=== PATIENT | male | born 1970 | race Caucasian/White ===

== ENCOUNTER 2017-03-04 02:17 | Observation (INO) | payer OTHER ==
--- NOTE | 2017-03-04 02:25 | CPEKG ---
Heart Rate: 92 RR Interval: 652 QRSD Interval: 124 QT Interval: 396 QTC Interval: 490 QRS [place]: -33 T Wave [place]: 63 EKG Severity - ABNORMAL ECG - EKG Impression: ACCELERATED JUNCTIONAL RHYTHM EKG Impression: IVCD, CONSIDER ATYPICAL RBBB EKG Impression: ANTERIOR INFARCT, AGE INDETERMINATE Electronically Signed By: Tayler Casillas 04-Mar-2017 07:56:36
[2017-03-04 02:31] LABS: % IMMATURE GRANULYOCYTES 0.4 % (0.0-1.1); ABSOLUTE IMMATURE GRANULOCYTES 0.03 10^3/uL (0.00-0.10); ADD DIFF? NO; ADD MORPH? NO; ADD SCAN? NO; ATYPICAL LYMPHOCYTE FLAG 10 (0-99); FRAGMENT RBC FLAG 0 (0-99); HEMATOCRIT 42.7 % (40.0-51.0); HEMOGLOBIN 15.5 g/dL (13.7-17.5); LEFT SHIFT FLG 0 (0-99); LIPEMIA HEMOLYSIS FLAG 90 (0-99); MEAN CELL HEMOGLOBIN CONCENTR. 36.3 g/dL (32.4-36.7); MEAN CELL VOLUME 88.2 fL (81.5-99.8); MEAN PLATELET VOLUME 10.1 fL (8.7-11.7); PLATELET CLUMPS FLAG 10 (0-99); PLATELET COUNT 309 10^3/uL (150-400); RED BLOOD CELL COUNT 4.84 10^6/uL (4.40-6.38); RED CELL DISTRIBUTION WIDTH 12.2 % (11.5-15.2)
[2017-03-04 02:37] LABS: ANION GAP 17 mEq/L (8-16); CALCIUM 9.9 mg/dL (8.5-10.4); CARBON DIOXIDE 24 mEq/l (22-31); CHLORIDE 100 mEq/L (97-110); CREATININE 1.2 mg/dL (0.7-1.3); GLOMERULAR FILTRATION RATE > 60; GLUCOSE 226 mg/dL (70-100); POTASSIUM 4.1 mEq/L (3.5-5.2); SODIUM 141 mEq/L (134-144)
[2017-03-04 02:40] LABS: INR 0.92 (0.83-1.16); PROTIME(PATIENT) 12.6 SEC (12.0-15.0)
[2017-03-04] MEDS ORDERED: MIDAZOLAM 2 MG/2 ML VIAL ONE (02:40)
[2017-03-04] MEDS ORDERED: IOPAMIDOL (ISOVUE-370) 150 ML BTL IV ONE ×2 (02:40→03:26)
[2017-03-04] MEDS ORDERED: LIDOCAINE 1% 300 MG/30 ML SDV ONE (02:40)
[2017-03-04] MEDS ORDERED: fentaNYL 100 MCG/2 ML INJ ONE (02:40)
[2017-03-04 02:41] LABS: APTT 23.1 SEC (23.0-38.0)
[2017-03-04] MEDS ORDERED: HEPARIN 30000 UNIT/30 ML IVP ONE (02:43)
[2017-03-04] MEDS ORDERED: HEPARIN 10,000 UNIT/10 ML MDV ONE ×2 (02:45→03:21)
[2017-03-04 02:48] LABS: TROPONIN I < 0.012 ng/mL (0.000-0.034)
[2017-03-04] MEDS ORDERED: NITROGLYCERIN 1,500 MCG/15 ML VIAL MISC ONE (03:15)
[2017-03-04] MEDS ORDERED: BIVALIRUDIN 250 MG/5 ML VIAL IV ONE (03:15)
[2017-03-04] MEDS ORDERED: CLOPIDOGREL BISULFATE 75 MG TAB ONE (03:16)
[2017-03-04] MEDS ORDERED: HEPARIN 10,000 UNIT/10 ML MDV IVP ONE (03:45)
--- NOTE | 2017-03-04 03:57 | PDPROPOC ---
Sedation Plan of Care Sedation Plan of Care: mental status noted, patient educated of risks, benefits , alternatives, patient can tolerate sedation ASA Classification: ASA 2 Planned drugs: fentanyl, midazolam Mallampati Score: Class 2 Mallampati Reference Image: Patient passed 3-3-2 rule?: Yes
--- NOTE | 2017-03-04 03:57 | PDHPUP ---
History & Physical Update H&P update statement: This history and physical update is based on an assessment of the patient which was completed after admission or registration (within 24 hours), but prior to the surgery/procedure. H&P update: H&P reviewed & patient examined, no change in patient's condition since H&P completed
[2017-03-04] MEDS ORDERED: ONDANSETRON 4 MG/2 ML VIAL IVP PRN (03:58)
[2017-03-04] MEDS ORDERED: TEMAZEPAM 15 MG CAP PO PRN (03:58)
[2017-03-04] MEDS ORDERED: HYDROCODONE/APAP 5/325 TAB PO PRN (03:58)
[2017-03-04] MEDS ORDERED: LORazepam 2 MG/ML INJ IVP PRN (03:58)
[2017-03-04] MEDS ORDERED: ATROPINE SULFATE 1 MG/10 ML SYR IVP PRN (03:58)
[2017-03-04] MEDS ORDERED: OXYCODONE/APAP 5/325 TAB PO PRN (03:58)
[2017-03-04] MEDS ORDERED: NITROGLYCERIN 0.4 MG BTL SL PRN (03:58)
--- NOTE | 2017-03-04 06:08 | GCON ---
[f rep st] CONSULTATION CARDIOLOGY CONSULTATION DATE OF CONSULTATION: 03/04/2017 CHIEF COMPLAINT: Chest pain. HPI: This is a 46-year-old male, who has history of diabetes mellitus, hypertension, who woke up thi s morning at 1 a.m. with crushing chest pain. EMS arrived and showed what appeared to be ST elevatio ns laterally with inferior depressions. The patient was transferred to [facility] wher e repeat EKG showed what appeared to be elevations in V1 to V3 with Q-waves. The patient was having still ongoing chest pain despite medical therapy. Cardiac alert was called. The patient was evaluat ed in the emergency room where he was describing his pain as substernal in nature, radiating to his l eft arm, 3/10 at the present time, but 10/10 earlier at 1 a.m. He denies any recent drug use or madera ges in medications. PAST MEDICAL HISTORY: Significant for diabetes mellitus, hypertension. HOME MEDICATIONS: Consist of insulin, lisinopril, and tramadol. SOCIAL HISTORY: Social drinking. No smoking. No drug use. FAMILY HISTORY: Significant for coronary artery disease on the maternal and paternal side. REVIEW OF SYSTEMS: Patient denies any vision changes. No headache. No palpitations. He does indica te having 3/10 chest pain. No abdominal pain. No low back pain. No lower extremity pain. PHYSICAL EXAM: VITAL SIGNS: Afebrile 96, blood pressure 110/70 with a heart rate 72, respirations 1 2, saturating 95% on room air. HEENT: Pupils equal, round, reactive to light and accommodation. Ex traocular movements intact. CARDIOVASCULAR: Regular rate and rhythm. S1-S2. LUNGS: Clear to ausc ultation bilaterally. ABDOMEN: Soft, nontender, no guarding. EXTREMITIES: No clubbing. No cyanos is. No edema. NEUROLOGIC: The patient is alert and oriented x3. LABORATORY VALUES: Currently are pending at this point. ASSESSMENT/PLAN: Chest pain. At this time, the patient has what appears to be ongoing anginal proce ss with diffuse ST changes from his EMS to his [facility] EKG. We will administer 5000 heparin IV, take an aspirin 325, and take the patient to the chemical laboratory tester. Further orders following [facility] course. /[id number]/MODL
[2017-03-04 06:09] LABS: % IMMATURE GRANULYOCYTES 0.3 % (0.0-1.1); ABSOLUTE IMMATURE GRANULOCYTES 0.02 10^3/uL (0.00-0.10); ADD DIFF? NO; ADD MORPH? NO; ADD SCAN? NO; ATYPICAL LYMPHOCYTE FLAG 10 (0-99); FRAGMENT RBC FLAG 0 (0-99); HEMATOCRIT 36.1 % (40.0-51.0); HEMOGLOBIN 13.4 g/dL (13.7-17.5); LEFT SHIFT FLG 0 (0-99); LIPEMIA HEMOLYSIS FLAG 90 (0-99); MEAN CELL HEMOGLOBIN 32.4 pg (27.9-34.1); MEAN CELL HEMOGLOBIN CONCENTR. 37.1 g/dL (32.4-36.7); MEAN CELL VOLUME 87.4 fL (81.5-99.8); MEAN PLATELET VOLUME 9.8 fL (8.7-11.7); PLATELET CLUMPS FLAG 0 (0-99); PLATELET COUNT 215 10^3/uL (150-400); RED BLOOD CELL COUNT 4.13 10^6/uL (4.40-6.38); RED CELL DISTRIBUTION WIDTH 12.1 % (11.5-15.2)
--- NOTE | 2017-03-04 06:40 | EDPHY ---
H & P Stated Complaint: CP HPI/ROS: HPI The patient presents with chest pain which began at 1:00 a.m. this morning which awoke him from sleep. It is in his mid sternum and is crushing in nature , it is been constant and initially was rated at a 9/10. It does not radiate. It is associated with nausea and diaphoresis. He has had intermittent chest pain over the last 2 weeks which has occurred while at rest. Paramedics picked him up at his house, EKG revealed ST segment elevations, he was activated as a cardiac alert. He received aspirin 324 mg in the field. REVIEW OF SYSTEMS Constitutional: No fever, no chills. Eyes: No discharge. ENT: No sore throat. Cardiovascular: Positive for chest pain, no palpitations. Respiratory: No cough, no shortness of breath. Gastrointestinal: No abdominal pain, no vomiting. Genitourinary: No hematuria. Musculoskeletal: No back pain. Skin: No rashes. Neurological: No headache. PMHx: Insulin-dependent diabetic, has continuous glucose monitor, hypertension , hyperlipidemia, had normal cardiac stress testing 2 years ago Soc Hx: Lives at home with his PHYSICAL General Appearance: Alert, no distress Eyes: Pupils equal and round no pallor or injection ENT, Mouth: Mucous membranes moist Respiratory: There are no retractions, lungs are clear to auscultation Cardiovascular: Regular rate and rhythm Gastrointestinal: Abdomen is soft and non-tender, no masses, bowel sounds normal Neurological: A&O, moves all extremities Skin: Warm and dry, no rashes Musculoskeletal: Neck is supple non tender Extremities: symmetrical, full range of motion Psychiatric: Patient is oriented X 3, there is no agitation Source: Patient, EMS Exam Limitations: No limitations - Personal History Current Tetanus Diphtheria and Acellular Pertussis (TDAP): Yes - Medical/Surgical History Hx Asthma: No Hx Chronic Respiratory Disease: No Hx Diabetes: Yes Hx Cardiac Disease: No Hx Renal Disease: No Hx Cirrhosis: No Hx Alcoholism: No Hx HIV/AIDS: No Hx Splenectomy or Spleen Trauma: No Other PMH: type 1diabetic - Social History Smoking Status: Never smoked Constitutional: Initial Vital Signs Temperature (C) 36.3 C 03/04/17 02:18 Heart Rate 100 03/04/17 02:18 Respiratory Rate 18 03/04/17 02:18 Blood Pressure 119/90 H 03/04/17 02:18 O2 Sat (%) 100 03/04/17 02:18 O2 Delivery Mode Nasal Cannula O2 (L/minute) 2 Allergies/Adverse Reactions: No Known Allergies Allergy (Unverified 03/04/17 02:25) Home Medications: Medication Instructions Recorded Lisinopril 03/04/17 Rosuvastatin Calcium 03/04/17 Medical Decision Making - Diagnostics EKG Interpretation: EKG: Complete interpretation has been separately recorded in the [facility] archive. Summary impression: Junctional rhythm with rate of 90, ST segment elevation in AVR, V2 and V3. Differential Diagnosis: This is a 46-year-old man with history of insulin-dependent diabetes, hypertension, hyperlipidemia who presents with intermittent chest pain over the last 2 weeks now very severe since 1:00 a.m., woke him from sleep, associated with diaphoresis and nausea. Field EKGs reviewed by me and concerning for STEMI with elevations in leads 1 and aVL with repeat reciprocal changes in 2, 3 , AVF and hyperacute T-waves in V4 through V6. The patient was taken immediately to a high acuity room. EKG was performed. The case was discussed with Dr. Chang. He would like to review the EKGs so I have sent them to him. He then agreed to take the patient to the cardiac catheterization lab. The patient will receive heparin and go directly to the cardiac catheterization lab. Critical Care Time: CRITICAL CARE Critical care time spent by me, Dr. Casillas, exclusively with this patient was 30 minutes, exclusive of PA time and exclusive of procedures. The organ system at risk was cardiac and I gave IV fluids, emergently transfer the patient to the geotechnical laboratory technician, consulted with the instructor substitute cosmetology, discussed the plan with the patient's family to prevent worsening of the patients condition. - Data Points Laboratory Results: Laboratory Results 03/04/17 02:20 03/04/17 02:20 03/04/17 03/04/17 03/04/17 02:20 02:20 02:20 WBC 8.08 10^3/uL 10^3/uL (3.80-9.50) RBC 4.84 10^6/uL 10^6/uL (4.40-6.38) Hgb 15.5 g/dL g/dL (13.7-17.5) Hct 42.7 % % (40.0-51.0) MCV 88.2 fL fL (81.5-99.8) MCH 32.0 pg pg (27.9-34.1) MCHC 36.3 g/dL g/dL (32.4-36.7) RDW 12.2 % % (11.5-15.2) Plt Count 309 10^3/uL 10^3/uL (150-400) MPV 10.1 fL fL (8.7-11.7) Neut % (Auto) 31.3 % L % (39.3-74.2) Lymph % (Auto) 59.8 % H % (15.0-45.0) Mcclain % (Auto) 7.8 % % (4.5-13.0) Eos % (Auto) 0.0 % L % (0.6-7.6) Baso % (Auto) 0.7 % % (0.3-1.7) Nucleat RBC Rel Count 0.0 % % (0.0-0.2) Absolute Neuts (auto) 2.53 10^3/uL 10^3/uL (1.70-6.50) Absolute Lymphs (auto) 4.83 10^3/uL H 10^3/uL (1.00-3.00) Absolute Monos (auto) 0.63 10^3/uL 10^3/uL (0.30-0.80) Absolute Eos (auto) 0.00 10^3/uL L 10^3/uL (0.03-0.40) Absolute Basos (auto) 0.06 10^3/uL 10^3/uL (0.02-0.10) Absolute Nucleated RBC 0.00 10^3/uL 10^3/uL (0-0.01) Immature Gran % 0.4 % % (0.0-1.1) Immature Gran # 0.03 10^3/uL 10^3/uL (0.00-0.10) PT 12.6 SEC SEC (12.0-15.0) INR 0.92 (0.83-1.16) APTT 23.1 SEC SEC (23.0-38.0) Sodium 141 mEq/L mEq/L (134-144) Potassium 4.1 mEq/L mEq/L (3.5-5.2) Chloride 100 mEq/L mEq/L (97-110) Carbon Dioxide 24 mEq/l mEq/l (22-31) Anion Gap 17 mEq/L H mEq/L (8-16) BUN 13 mg/dL mg/dL (7-23) Creatinine 1.2 mg/dL mg/dL (0.7-1.3) Estimated GFR > 60 Glucose 226 mg/dL H mg/dL (70-100) Calcium 9.9 mg/dL mg/dL (8.5-10.4) Troponin I < 0.012 ng/mL ng/mL (0.000-0.034) Medications Given: Discontinued Medications Heparin Sodium (Porcine) (Heparin Sodium) 5,000 unit IVP EDNOW ONE Stop: 03/04/17 02:44 Last Admin: 03/04/17 02:58 Dose: 5,000 unit Heparin Sodium (Porcine) (Heparin Injection) 5,000 unit IVP EDNOW ONE Stop: 03/04/17 03:46 Last Admin: 03/04/17 05:12 Dose: Not Given Departure - Departure Disposition: To OP Cath/Surgery Clinical Impression: STEMI (ST elevation myocardial infarction) Qualifiers: Involved coronary artery: unspecified coronary artery Qualified Code(s): I21.3 - ST elevation (STEMI) myocardial infarction of unspecified site Condition: Fair
--- NOTE | 2017-03-04 06:43 | CPIP ---
[f rep st] INVASIVE CARDIAC PROCEDURE DATE OF PROCEDURE: 03/04/2017 INDICATIONS FOR PROCEDURE: Chest pain, STEMI alert. PROCEDURE: 1. Nonselective right groin sheathogram. 2. Bilateral selective coronary angiography. 3. Left heart catheterization. 4. Left ventriculogram. 5. Percutaneous coronary intervention of high-grade proximal left anterior descending artery lesion utilizing Synergy 3.0 x 12 mm drug-eluting stent. HISTORY: Briefly, this is a 46-year-old male, who woke up with crushing chest pain 2 hours ago. The patient had EKG changes consistent with initially lateral STEMI, which then converted over to what a ppeared to be anterior ST elevations with Q-waves. Given these findings, the patient consented for i nvasive angiography. After informed consent, the patient was brought to [facility] where the right groin was prepped and draped in sterile fashion. Using local lidocaine a short 6-Yakut sheath was placed in the right common femoral artery, verified angiographically. Through this 6-Yakut sheath a JR4 julianne ter was advanced to the right coronary artery. Images of the right coronary artery revealed normal o s RCA, mid RCA had mild plaque disease. Distal RPD and RPL appeared to be tiny, but healthy and free of disease. After these images were obtained, the JR4 catheter was removed. A JL4 catheter was adv anced to left coronary artery. Images of the left coronary artery revealed normal left main. Left c ircumflex artery gave off a large marginal 1 proximally, which was healthy and free of disease. It t erminated to what appeared to be an LPLS. This is most likely a codominant circulation, and this was healthy and free of disease. The LAD had a smooth tubular lesion measuring 70% from the ostium to t he proximal aspect, distally the vessel appeared to be widely patent. There was a diagonal artery co leti off the proximal portion which was healthy and free of disease. There was a small ramus interme dius which was healthy and free of disease. After imaging was obtained, the patient was administered 600 Plavix p.o. and administered 5000 heparin IV. INTERVENTIONAL REPORT: At this time, after Plavix and heparin administration, an EBU 3.[address] was advanced to the left coronary artery. A Choice PT wire was placed down to the distal LAD. P redilatation commenced across the ostial proximal LAD with a 3.0 x 8 mm Compliant balloon at 12 atmos pheres. After performed, the balloon was removed. We then proceeded with stenting this vessel with a Synergy 3.0 x 12 mm. This was deployed successfully at 14 atmospheres. After deployment, angiogra phy continued to show excellent patency of the stented regions with no evidence of dissection or perf oration. At this time, the wire was removed. The guide catheter was removed over the 0.035 wire. A pigtail catheter was then advanced to left ventricle. LVEDP is 12 mmHg. Left ventriculogram obtain ed in the GUERRA position showed an EF of 65% with no wall motion abnormalities. The pigtail catheter w as then removed from the LV with no pullback gradient. The pigtail catheter was removed from the 0.0 35 wire. Right groin was sutured with 6-Yakut Angio-Seal. Patient tolerated the procedure well wit h no complications. IMPRESSION: 1. Successful percutaneous coronary intervention of high-grade smooth tubular left anterior descendi ng artery disease. This was not a STEMI, but rather an intervention on a high-grade ostial proximal left anterior descending artery lesion which did have intact flow. 2. Codominant right coronary artery. 3. Normal ejection fraction. PLAN: The patient will be maintained on aspirin and Plavix for at least 1 year's time. [place] co ntinuation of statin therapy, his home lisinopril, insulin, check cardiac echo. /[id number]/MODL
[2017-03-04 07:00] LABS: ANION GAP 11 mEq/L (8-16); ASPARTATE AMINOTRANSFERASE 34 IU/L (17-59); BILIRUBIN,TOTAL 0.5 mg/dL (0.1-1.4); CALCIUM 8.6 mg/dL (8.5-10.4); CARBON DIOXIDE 21 mEq/l (22-31); CHLORIDE 106 mEq/L (97-110); CREATININE 0.8 mg/dL (0.7-1.3); GLOMERULAR FILTRATION RATE > 60; GLUCOSE 219 mg/dL (70-100); LACTATE DEHYDROGENASE 384 IU/L (313-618); MAGNESIUM 1.7 mg/dL (1.6-2.3); POTASSIUM 4.7 mEq/L (3.5-5.2); SODIUM 138 mEq/L (134-144)
--- NOTE | 2017-03-04 09:55 | ASMTCMCOM ---
CM Note CM Note Notes: 46 year old male admitted for a STEMI. He has a hx of DM and HTN. Went to director of labor and delivery and found to have ostial proximal anterior descending artery lesion, to be medically managed. No discharge needs anticipated. Date Signed: 03/04/2017 09:55 AM Electronically Signed By:Colleen Sandoval LCSW
[2017-03-04] MEDS: INSULIN REGULAR HUMAN 100 UNIT/ML SC SCH ×2 (10:23→13:03)
[2017-03-04] MEDS: LISINOPRIL 10 MG TAB PO SCH (10:24)
[2017-03-04] MEDS: ASPIRIN 81 MG CHEWABLE TAB PO SCH (10:24)
[2017-03-04] MEDS: ROSUVASTATIN CALCIUM 20 MG TAB PO SCH (10:24)
--- NOTE | 2017-03-04 16:17 | CPEKG ---
Heart Rate: 71 RR Interval: 845 P-R Interval: 176 QRSD Interval: 92 QT Interval: 396 QTC Interval: 431 P [place]: 49 QRS [place]: 45 T Wave [place]: 18 EKG Severity - NORMAL ECG - EKG Impression: SINUS RHYTHM Electronically Signed For: Tayler Casillas 04-Mar-2017 16:23:16
[2017-03-04] MEDS: INSULIN LISPRO 100 UNIT/ML SC SCH (17:58)
[2017-03-04] MEDS ORDERED: INSULIN LISPRO 100 UNIT/ML SC SCH (18:00)
[2017-03-04] MEDS ORDERED: INSULIN GLARGINE 100 UNITS/ML SYRINGE SC SCH (19:00)
[2017-03-05 04:42] LABS: CHOLESTEROL 255 mg/dL (140-200); CHOLESTEROL/HDL RATIO 4.18 RATIO (1.00-4.97); HIGH DENSITY LIPOPROTEIN 61 mg/dL (40-65); LOW DENSITY LIPOPROTEIN 171 mg/dL (70-100); NON-HIGH DENSITY LIPOPROTEIN 194 mg/dL (90-129); TRIGLYCERIDE 118 mg/dL (40-150); VERY LOW DENSITY LIPOPROTEINS 23 mg/dL (8-25)
[2017-03-05] MEDS ORDERED: INSULIN GLARGINE 100 UNITS/ML SYRINGE SC SCH (07:00)
[2017-03-05] MEDS: INSULIN LISPRO 100 UNIT/ML SC SCH ×2 (07:33→12:23)
[2017-03-05] MEDS: LISINOPRIL 10 MG TAB PO SCH (08:40)
[2017-03-05] MEDS: ROSUVASTATIN CALCIUM 20 MG TAB PO SCH (08:40)
[2017-03-05] MEDS ORDERED: OMEGA-3 FATTY ACIDS 1,000 MG CAP PO SCH (09:00)
[2017-03-05] MEDS ORDERED: CLOPIDOGREL BISULFATE 75 MG TAB PO SCH (09:00)
[2017-03-05] MEDS ORDERED: VITAMIN B COMPLEX 1 EA CAP/TAB PO SCH ×2 (09:00)
[2017-03-05] MEDS ORDERED: METOPROLOL TARTRATE 25 MG TAB PO SCH (09:15)
[2017-03-05] MEDS ORDERED: ASPIRIN 325 MG TAB PO SCH (09:15)
[2017-03-05] MEDS: ASPIRIN 81 MG CHEWABLE TAB PO SCH (09:43)
[2017-03-05 11:40] VITALS: BP 134/96; PULSE 55; RESP 18; TEMP 98.6; O2SAT 96
--- NOTE | 2017-03-05 12:43 | ECHO ---
[email or web address] [address] [address] Main: [phone] Fax: Transthoracic Echocardiogram Name: HUNTER DELCID MR#: [id number] Study Date: 03/05/2017 Study Time: 09:50 AM Date of : 1970 Age: 46 year(s) Height: 182.9 cm (72 in.) Weight: 88 kg (194 lb.) BSA: 2.1 m2 Gender: Male Examination: Echo Indication: Post Stent, Elevated Troponins Image Quality: Contrast: Requested by: Gi Salgado BP: 118 mmHg/71 mmHg Heart Rate: Rhythm: Indication: Post Stent, Elevated Troponins Procedure Staff Pesticide Control Inspector: Brent Aparicio Reading Physician: Ned Eller Requesting Provider: Conclusions: Normal size left ventricle. Normal global systolic LV function. EF is 76 %. No regional wall motion abnormality. Normal diastolic LV function. Normal size right ventricle. Normal RV function. Measurements: Chambers Valvular Assessment AV/MV Valvular Assessment TV/PV Normal Normal Normal Name Value Range Name Value Range Name Value Range Ao Maxine (MM): 3.1 cm (2.2 cm-3.7 AV Vmax: 1.17 m/s (1 m/s-1.7 PV Vmax: 1.06 m/s (0.6 m/s-0.9 cm) m/s) m/s) IVSd (2D): 1.0 cm (0.6 cm-1.1 AV maxP mmHg ( - ) PV PGmax: 4 mmHg ( - ) cm) LVOT Vmax: 0.89 m/s (0.7 m/s-1.1 LVDd (2D): 4.6 cm (4.2 cm-5.9 m/s) cm) MV E Vmax: 0.56 m/s ( - ) LVDs (2D): 2.5 cm (2.1 cm-4 MV A Vmax: 0.68 m/s ( - ) cm) MV E/A: 0.82 ( - ) LVPWd (2D): 1.0 cm (0.6 cm-1 cm) LVEF (2D): 76 (>=54 %) Continued Measurements: Chambers Valvular Assessment AV/MV Name Value Name Value LADs Lon.6 cm MV E/E' Septal: 7.40 LA Area: 14.6 cm2 MV E/E' Lateral: 6.70 Patient: HUNTER DELCID Study Date: 03/05/2017 Page 1 of 2 09:50 AM Findings: Left Ventricle: Normal size left ventricle. No LV hypertrophy. Normal global systolic LV function. EF is 76 %. No regional wall motion abnormality. Normal diastolic LV function. Right Ventricle: Normal size right ventricle. Normal RV function. Left Atrium: The left atrium is normal in size. Right Atrium: The right atrium is normal in size. Chiari's network discernible in right atrium. Mitral Valve: The mitral valve is normal in appearance and function. Trivial mitral valve regurgitation. Aortic Valve: The aortic valve is normal in appearance and function. The aortic valve is tri-leaflet. Tricuspid Valve: The tricuspid valve is normal in appearance and function. Trivial tricuspid valve regurgitation. Pulmonic Valve: The pulmonic valve is normal in appearance and function. Aorta: The aorta is normal. Pericardium: No pericardial effusion. (No Signature Object) Patient: HUNTER DELCID Study Date: 03/05/2017 Page 2 of 2 09:50 AM [id number]
--- NOTE | 2017-03-05 18:16 | GDS ---
[f rep st] DISCHARGE SUMMARY DISCHARGE DIAGNOSES: 1. Acute anterior myocardial infarction status post stenting to the left anterior descending artery for 70% stenosis, with a Synergy 3.0 x 12 mm drug-eluting stent. 2. Type 1 diabetes. 3. Hypertension. 4. Hyperlipidemia. HOSPITAL COURSE: For detailed H and P, please see prior dictation. Briefly, Oscar Diop is a 46- year-old type 1 diabetic who presented to the hospital complaining of chest pain. He first noted francesca e chest discomfort a month ago while taking his normal 2-5 mile walk. That day he had also taken sum atriptan for a migraine. Approximately 2 weeks later, he took another dose of sumatriptan for a migr helena and did have some chest discomfort associated with this. After that he noted some angina with h is normal walk to work. The day of admission he woke up at 1:00 am with crushing chest discomfort wh ich he rated 10/10. EMS was activated and his initial EKG showed ST elevations laterally with inferi or depressions. He was brought to [facility] and a repeat EKG showed elevation in V1 a nd V3 with Q-waves. His chest discomfort had been reduced to 3/10, but given his EKG changes and karly oing discomfort, a cardiac alert was called. He was [facility] by Dr. Arnaldo Chang. He was found to have a high-grade stenosis of the LAD measuring 70 %, which was stented with a 3.0 x 12 mm Synergy drug-eluting stent. The remainder of LAD was free of significant disease. The left circumflex artery was free of significant disease. The mid right cor onary artery did show mild CAD. His initial troponin was negative, but a repeat troponin the followi was positive at 2.83. Post stenting he did quite well. He had some mild chest discomfort the following day of his procedure, but this resolved prior to discharge. An echocardiogram the day of discharge showed normal LV function without any significant valvular or wall motion abnormalities. Oscar is a type 1 diabetic. He has been trying to control his blood sugars with a ketogenic diet. He has been on this for the last 2-1/2 years and has lost 25 pounds. He has also reduced his insuli n by 30%. He has been seen by multiple watch leader as well as nail polish brush machine feeder as to whether or not this is an ideal diet for him. He was recently started on Crestor 10 mg daily for hyperlipidemia and known coronary disease, which was identified by coronary CT angiogram. During his hospitalization his LDL was calculated at 171. He has only been on Crestor for 2 weeks. I have increased his dose to 20 mg daily. He has also been started on metoprolol 12.5 mg twice daily for his acute PA. He will continue lisinopril. PHYSICAL EXAMINATION: GENERAL: Patient appears in no acute distress. VITAL SIGNS: Blood pressure 1 34/96, heart rate 55, oxygen saturation of 96% on room air. Afebrile. NECK: No carotid bruits or J VD present. LUNGS: Clear to auscultation. No wheezes, rhonchi, or crackles auscultated. CARDIAC: Regular rate and rhythm without any murmurs, rubs, or gallops appreciated. EXTREMITIES: Palpable p ulses bilaterally without any evidence of edema. Right groin where access was obtained for the angio gram is clean, intact, without any evidence of infection or hematoma. MEDICATIONS: New medications: Crestor 20 mg daily, metoprolol 12.5 mg twice daily, Plavix 75 mg vishal ly, aspirin 325 mg daily. He will continue lisinopril 10 mg daily, vitamin B complex daily, fish oil 1000 mg daily, insulin, an d herbal supplement. PLAN: Oscar is currently stable and ready for discharge home. He is aware that he is to remain on aspirin and Plavix for a minimum of 1 year. Crestor has been increased. His LDL should be treated to less than 70. He will need a repeat fasting lipid profile and liver function tests in 3 months. He should continue aggressive management of his diabetes, hypertension, and hyperlipidemia. He has b een given groin precautions today. He has been on a ketogenic diet for the last 2-1/2 years. I do n ot think this is an ideal diet for him and have recommended that he adopt a low carb, high protein di et. He is currently a patient at [facility] and he will work with the dietitians over there to develop a diet that works for him. He will call [facility] to schedule a followup visit in the next 1-2 weeks. I have also discussed cardiac rehab with him, which he would like to pursue. This can be scheduled at his followup visit at [facility]. Lastly, we discussed the risks of sumatriptan in regard to coronary d isease. He understands the risks and has agreed not to take that medication in the future. He will discuss alternative options with his primary care doctor. /[id number]/MODL
== END 2017-03-05 13:35 | disposition home or self-care (01) ==
LOC: EDUNIT# → INTOOBSV 03:10 → F2N 04:17 → F2W 21:45
PROVIDERS: ADMIT Internal Medicine Cardiovascular Disease; ATTEND Internal Medicine Cardiovascular Disease
PROC: B2111ZZ Fluoroscopy of Multiple Coronary Arteries using Low Osmolar Contrast (ICD-10-PCS; principal; 2017-03-04)
PROC: 027034Z Dilation of Coronary Artery, One Artery with Drug-eluting Intraluminal Device, Percutaneous Approach (ICD-10-PCS; principal; 2017-03-04)
PROC: 4A023N8 Measurement of Cardiac Sampling and Pressure, Bilateral, Percutaneous Approach (ICD-10-PCS; principal; 2017-03-04)
PROC: B2151ZZ Fluoroscopy of Left Heart using Low Osmolar Contrast (ICD-10-PCS; principal; 2017-03-04)
DX: I21.29 ST elevation (STEMI) myocardial infarction involving other sites (principal); I25.10 Atherosclerotic heart disease of native coronary artery without angina pectoris; E10.9 Type 1 diabetes mellitus without complications; I10 Essential (primary) hypertension; E78.5 Hyperlipidemia, unspecified; G43.909 Migraine, unspecified, not intractable, without status migrainosus; Z79.4 Long term (current) use of insulin
CPT/HCPCS: 92928; 93005; 93306; 93458; C1725; C1769; C1887; G0378; 96374; C1874; C9600; C9606; J0583; J1644; J1815; J2250; J3010; Q9967